=== PATIENT | male | born 2000 | race Two or more races ===

== ENCOUNTER 2024-10-15 03:37 | Emergency (ER) | payer OTHER ==
[~2024-10-15] VITALS: Ht 172.7 cm; Wt 65.8 kg
[2024-10-15] MEDS ORDERED: CEFTRIAXONE SODIUM 1,000 MG VIAL IM STA (05:57)
[2024-10-15] MEDS ORDERED: BACITRACIN-NEOMYCIN-POLYMYXIN 0.9 GM PACKET TOP ONE (06:09)
[2024-10-15] MEDS ORDERED: CEFTRIAXONE SODIUM 1,000 MG VIAL ONE (06:10)
[2024-10-15] MEDS ORDERED: CEPHALEXIN500 MG PO (06:12)
[2024-10-15] MEDS ORDERED: MUPIROCIN1 G1 TOP (06:12)
== END 2024-10-15 06:23 | disposition home or self-care (01) ==
LOC: ER 03:40
DX: S70.212A Abrasion, left hip, initial encounter (principal); V00.131A Fall from skateboard, initial encounter; Y93.89 Activity, other specified; Y92.413 State road as the place of occurrence of the external cause

== ENCOUNTER 2024-10-31 21:04 | Emergency (ER) | payer OTHER ==
[~2024-10-31] VITALS: Ht 172.7 cm; Wt 65.8 kg
[~2024-10-31 21:04] MED LIST: CEPHALEXIN500 MG PO; MUPIROCIN1 G1 TOP
[2024-10-31] MEDS ORDERED: KETOROLAC TROMETHAMINE 30 MG VIAL IV ONE (21:45)
[2024-10-31] MEDS ORDERED: 0.9 % SODIUM CHLORIDE 500 ML IV SCH (21:45)
[2024-10-31] MEDS ORDERED: PROPOFOL 10,000 MCG/ML VIAL IV PUSH ONE (21:45)
== END 2024-10-31 22:14 | disposition home or self-care (01) ==
LOC: ER 21:06
DX: S43.085A Other dislocation of left shoulder joint, initial encounter (principal); W19.XXXA Unspecified fall, initial encounter; Y93.89 Activity, other specified; Y92.89 Other specified places as the place of occurrence of the external cause; Y99.8 Other external cause status